=== PATIENT | male | born 1985 | race Caucasian/White ===

== ENCOUNTER 2020-02-16 20:35 | Emergency (ER) | payer SELFPAY ==
--- NOTE | 2020-02-16 21:30 | CR ---
Left foot:z 4 views left foot were obtained. Comparison: No prior study. Small avulsion fracture is noted off the medial base of the 1st metatarsal. Fractures are seen within the base of the 2nd and 4th metatarsals. Small cortical fracture likely present within the base of the 3rd metatarsal. Findings felt compatible with Lisfranc injury. On the lateral view there is dorsal dislocation of a metatarsal, uncertain as to which one but most likely the 2nd. Impression: 1. Fractures as described above with with slight dorsal dislocation of a metatarsal base on the lateral view most likely the 2nd digit. 2. Findings are compatible Lisfranc injury. Diagnostic code #3 This report was dictated in MDT
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
--- NOTE | 2020-02-17 08:00 | CT ---
CT left foot Technique: Multiple axial sections through the left foot were obtained. Reconstructed coronal and sagittal images were obtained. Comparison: Prior plain film foot exam performed earlier on the same day (9 PM). Findings: Comminuted fractures are identified within the base of the 2nd through 4th metatarsals. Small cortical avulsion fracture is noted off the base of the 1st metatarsal compatible with Lisfranc injury. Bony fragment at the 2nd metatarsal tarsal level shows dorsal displacement by about 4.7 mm. Base of the 5th metatarsals shows no fracture. Tarsal bones show no fracture. Soft tissue swelling is present. Small calcifications are seen off the medial and lateral ankle which represent old injury. Impression: 1. Comminuted fractures within the base of the 2nd through 4th metatarsals. Small avulsion fracture at the base of the 1st metatarsal is seen compatible with Lisfranc injury. 2. Displacement is noted up to 4.7 mm. 3. Diffuse soft tissue swelling. Diagnostic code #3 This report was dictated in MDT I agree with preliminary report from [facility], finalized on 02/16/20, 11:20 PM Central Daylight Time [facility]
== END 2020-02-16 22:45 | disposition home or self-care (01) ==
LOC: JD.ED 20:35
DX: S92.312A Displaced fracture of first metatarsal bone, left foot, initial encounter for closed fracture (principal); S92.322A Displaced fracture of second metatarsal bone, left foot, initial encounter for closed fracture; S92.342A Displaced fracture of fourth metatarsal bone, left foot, initial encounter for closed fracture; Z91.018 Allergy to other foods; F17.210 Nicotine dependence, cigarettes, uncomplicated; V09.9XXA Pedestrian injured in unspecified transport accident, initial encounter
CPT/HCPCS: 73630-26-LT; 73630-LT; 73700-26-LT; 73700-LT; 99282; 99284-25